=== PATIENT | female | born 1990 | race Caucasian/White ===

== ENCOUNTER → 2018-06-20 | Outpatient (CLI) | payer MEDICAID ==
[~2018-06-20] MED LIST: PREN-127 PO
[2018-06-20 11:08] LABS: PLATELET COUNT, AUTOMATED 249 K/uL (150-450)
== END ==
LOC: LAB 10:13
PROVIDERS: ATTEND Obstetrics & Gynecology
DX: O09.299 Supervision of pregnancy with other poor reproductive or obstetric history, unspecified trimester (principal)
CPT/HCPCS: 36415; 81001; 84702; 85025; 86592; 86703; 86762; 86850; 86900; 86901; 87088; 87340

== ENCOUNTER → 2018-07-01 | Outpatient (CLI) | payer MEDICAID | LOC: LAB 09:59 | PROVIDERS: ATTEND Obstetrics & Gynecology | DX: O20.0 Threatened abortion (principal) | CPT/HCPCS: 36415; 84702 ==

== ENCOUNTER → 2018-08-08 | Outpatient (CLI) | payer MEDICAID ==
[2018-08-08 11:10] LABS: PLATELET COUNT, AUTOMATED 287 K/uL (150-450)
== END ==
LOC: LAB 09:22
PROVIDERS: ATTEND Obstetrics & Gynecology
DX: Z34.81 Encounter for supervision of other normal pregnancy, first trimester (principal)
CPT/HCPCS: 36415; 81001; 84702; 85025; 86592; 86703; 86762; 86850; 86900; 86901; 87088; 87340

== ENCOUNTER → 2018-08-10 | Outpatient (CLI) | payer MEDICAID | LOC: LAB 10:37 | PROVIDERS: ATTEND Obstetrics & Gynecology | DX: O20.0 Threatened abortion (principal) | CPT/HCPCS: 36415; 84702 ==

== ENCOUNTER → 2018-08-17 | Outpatient (CLI) | payer MEDICAID | LOC: LAB 10:44 | PROVIDERS: ATTEND Obstetrics & Gynecology | DX: O03.9 Complete or unspecified spontaneous abortion without complication (principal) | CPT/HCPCS: 36415; 84702 ==

== ENCOUNTER → 2018-12-02 | Outpatient (CLI) | payer MEDICAID ==
[2018-12-02 11:02] LABS: PLATELET COUNT, AUTOMATED 246 K/uL (150-450)
== END ==
LOC: LAB 08:27
PROVIDERS: ATTEND Obstetrics & Gynecology
DX: Z34.91 Encounter for supervision of normal pregnancy, unspecified, first trimester (principal)
CPT/HCPCS: 36415; 81001; 85025; 86592; 86703; 86762; 86850; 86900; 86901; 87088; 87340

== ENCOUNTER → 2018-12-07 | Outpatient (CLI) | payer MEDICAID ==
[~2018-12-07] MED LIST changes: +FLU60SYR36 IM
== END ==
LOC: LAB 08:10
PROVIDERS: ATTEND Student in an Organized Health Care Education/Training Program
DX: Z34.91 Encounter for supervision of normal pregnancy, unspecified, first trimester (principal)
CPT/HCPCS: 87491; 87591

== ENCOUNTER → 2019-02-01 | Outpatient (CLI) | payer MEDICAID ==
--- NOTE | 2019-02-01 11:21 | RADIOLOGY IMAGING REPORT ---
FACILITY: [facility] PATIENT NAME: Kate Valencia : 1990 MR: [id number] V: [id number] EXAM DATE: [id number] ORDERING PHYSICIAN: WAGNER WOODS TECHNOLOGIST: Location: [facility] [place] Patient: Kate Valencia : 1990 Visit/Account:[id number] Date of Sevice: 02/01/2019 EXAMINATION: Ultrasound transabdominal OB > 14 weeks with anatomic evaluation HISTORY: 20 week anatomical survey COMPARISON: None. TECHNIQUE: Transabdominal imaging was performed for assessment of the fetus and maternal pelvic structures. T ransvaginal imaging was not performed. FINDINGS: Placenta: Anterior without previa. Uterus: Gravid, otherwise normal Cervix: Long and closed. Maternal Ovaries: Not visualized. Maternal and other adnexa findings: Not visualized Intrauterine gestations: One. presentation: Cephalic heart rate: Normal and regular at 139 bpm Amniotic fluid index: 13.52 cm Largest amniotic fluid pocket: 4.46 cm Gestational Parameters: BPD: 4.81 cm 20 weeks/ four days, 42% HC: 17.84 cm 20 weeks/ three days, 23% AC: 14.73 cm 20 weeks/ one days, 22% FL: 3.71 cm 21 weeks/ six days, 78% Average ultrasound age (AUA): 20 weeks/six days, VU 06/15/2019 Estimated gestational age by VU: 20 weeks/five days, VU 06/16/2019 Estimated weight (EFW): 377 grams +/- 55 grams EFW for VU: 49 percentile Anatomic Survey: Intracranial structures, 4-chamber heart, stomach, kidneys, urinary bladder, spine, 3-vessel cord and cord insertion are unremarkable. Two upper and two lower extremities visualized. Cardiac ventricula r outflow tracts, palate and lips are unremarkable in appearance. IMPRESSION: Single viable fetus in cephalic presentation with an estimated gestational age by measur ements of 20 weeks and six days. The estimated weight by LMP is 20 weeks and five days. Estim ated weight is 377 g consistent with the 49th percentile Report Dictated By: Dee Conrad MD at 02/01/2019 11:13 AM Report E-Signed By: Dee Conrad MD at 02/01/2019 11:17 AM WSN:[id number]
== END ==
LOC: RAD 08:04
PROVIDERS: ATTEND Student in an Organized Health Care Education/Training Program
DX: Z3A.15 15 weeks gestation of pregnancy (principal)

== ENCOUNTER → 2019-04-11 | Outpatient (CLI) | payer MEDICAID ==
[~2019-04-11] MED LIST changes: +DIPH0.5S2 IM
[2019-04-11 11:28] LABS: PLATELET COUNT, AUTOMATED 236 K/uL (150-450)
== END ==
LOC: LAB 09:42
PROVIDERS: ATTEND Advanced Practice Midwife
DX: Z34.92 Encounter for supervision of normal pregnancy, unspecified, second trimester (principal)
CPT/HCPCS: 36415; 82950; 85025

== ENCOUNTER → 2019-05-18 | Outpatient (CLI) | payer MEDICAID ==
--- NOTE | 2019-05-18 16:47 | RADIOLOGY IMAGING REPORT ---
[place] [facility] [place] NAME: Kate Valencia : 1990 MR: [id number]: [id number] EXAM DATE: ORDERING PHYSICIAN: KELTON MATTA TECHNOLOGIST: Location: [facility] Patient: Kate Valencia : 1990 Visit/Account:[id number] Date of Sevice: 05/18/2019 [facility] [place] OB LIIMITED Indication: 29-year-old female with LMP September 09, 2018. Procedure: There has been satisfactory transabdominal grayscale evaluation of the intrauterine conten ts. Comparison study: February 01, 2019. First ultrasound suggesting gestational age of 20 weeks and 6 days . Findings: Biometric profile: BPD is 8.9 cm which is 36 weeks 0 days HC is 32.1 cm which is 36 weeks 2 days AC is 31.9 cm which is 35 weeks 6 days FL is 7.0 cm which is 36 weeks 0 days The composite gestational age is 36 weeks 1 day. The JIN is 12.1. The largest pocket is 4.0. The vinny mated weight is 2792 +/- 408 gms. weight percentage: 51%. EDC: June 15, 2019. survey: A survey was not performed. Placenta: The placenta is anterior and there is no placenta previa. Maternal adnexa: Unremarkable.. IMPRESSION: There has been satisfactory interval growth for this single live intrauterine w ith a ultrasound gestational age of 36 weeks and 1 day. The estimated date of delivery is June 15, 2019. The weight is 2792 g. This is in the 51st percentile. The heart rate is 146 bpm . The JIN is 12.1. Report Dictated By: Barrera Anguiano MD at 05/18/2019 4:33 PM Report E-Signed By: Barrera Anguiano MD at 05/18/2019 4:39 PM WSN:DAT
== END ==
LOC: US 10:57
PROVIDERS: ATTEND Student in an Organized Health Care Education/Training Program
DX: O26.849 Uterine size-date discrepancy, unspecified trimester (principal)

== ENCOUNTER → 2019-05-24 | Outpatient (CLI) | payer MEDICAID | LOC: LAB 15:33 | PROVIDERS: ATTEND Obstetrics & Gynecology | DX: Z36.85 Encounter for antenatal screening for Streptococcus B (principal); B95.1 Streptococcus, group B, as the cause of diseases classified elsewhere | CPT/HCPCS: 87077; 87081; 87186 ==

== ENCOUNTER 2019-06-03 11:26 | Inpatient (IN) | payer MEDICAID ==
[~2019-06-03] VITALS: Ht 165.1 cm; Wt 74.8 kg
[2019-06-03] MEDS ORDERED: OXYTOCIN 30 UNIT/NS 500 ML 500 ML IV PRN ×2 (11:33→13:45)
[2019-06-03] MEDS ORDERED: FAMOTIDINE(*) 20MG/50ML PREMIX 50 ML IVPB PRN (11:33)
[2019-06-03] MEDS ORDERED: LIDOCAINE/SOD BICARB 8.4% SYR SC PRN (11:35)
[2019-06-03] MEDS ORDERED: FLUSH 10 ML SYR IVP PRN (11:35)
[2019-06-03] MEDS ORDERED: fentaNYL CITR 100 MCG/2 ML AMP IVP PRN (11:35)
[2019-06-03] MEDS ORDERED: LIDOCAINE 1% LOCAL 300 MG/30ML INJ PRN (11:35)
[2019-06-03] MEDS ORDERED: METOCLOPRAMIDE 10 MG/2 ML SDV IVP PRN (11:35)
[2019-06-03] MEDS ORDERED: PENICILLIN G 5 MILLUN VIAL 5 MIU in NS(*) 0.9% 100 ML MINI-BAG 100 ML IVPB ONE (11:35)
[2019-06-03 12:37] VITALS: Ht 165.1 cm; Wt 74.8 kg
[2019-06-03] MEDS: LR(*) 1000 ML BAG 1,000 ML IV SCH ×2 (13:06→16:20)
[2019-06-03 13:25] LABS: PLATELET COUNT, AUTOMATED 263 K/uL (150-450)
[2019-06-03] MEDS ORDERED: BUPIVACAINE 0.25% MPF INJ EPI PRN (13:40)
[2019-06-03] MEDS ORDERED: LIDO/EPI 2% MPF 1:200,000 20ML EPI PRN (13:40)
[2019-06-03] MEDS ORDERED: LIDOCAINE/PF 2% 200MG/10ML AMP 200 MG/10 ML AMPUL EPI PRN (13:40)
[2019-06-03] MEDS ORDERED: fentaNYL CITR 100 MCG/2 ML AMP IT PRN (13:40)
[2019-06-03] MEDS ORDERED: BUPIVACAINE 0.5% INJ 30ML VIAL EPI PRN (13:40)
[2019-06-03] MEDS ORDERED: FENTANYL/ROPIVACAINE 100 ML BAG EPI PRN (13:40)
[2019-06-03] MEDS ORDERED: FENTANYL/ROPIVACAINE 100ML BAG 100 ML ONE (15:35)
--- NOTE | 2019-06-03 16:59 | Anesthesia OB Pre-Anes Eval ---
History of Present Illness Anesthesia Start Date: Jun 03, 2019 Anesthesia Start Time: 15:36 OB Anesthesia Diagnosis: spontaneous labor EDC: Jun 16, 2019 : 7 Para: 3 Vital Signs: BP 105/64, HR 88 O2 sat 96% See RN Notes Pain Ratin Heart Tones: Stable/normal Result Diagram: 06/03/19 1223 Height (Inches): 65.00 Weight (Pounds): 165 Past Medical History Medical History: no pertinent history Surgical History: noncontributory (Lasik) Previous Anesthesia: epidural Hx Anesthesia Reactions: No Hx Family Anesthesia Reaction: No Home Meds Reported Medications Vits W-Ca,Fe,Fa(<1MG) ( VITAMINS) 1 Each Tablet, 1 EACH PO DAILY, TAB 06/20/18 Allergies: Coded Allergies: No Known Drug Allergies (Unverified , 06/20/18) Anesthesia OB ROS Pulmonary: other (clear to auscultation bilaterally, no SOB) Airway Class: ll Cardiovascular ROS: other (RRR, no MRG, no edema, no syncope, no CP) GI ROS: clear liquids ASA Classification: 2 Assessment and Plan Anesthesia Plan: CINDY NEWSOME [employer] ARCHITECT Jun 03, 2019 16:59
[2019-06-03] MEDS ORDERED: PENICILLIN G 2.5 MILLUN/100 ML 100 ML IVPB SCH (17:00)
--- NOTE | 2019-06-03 17:14 | Procedure Note ---
Anesthetic Placement Note Anesthesia Plan: LEB Permit for Anesthesia Signed: Yes Anesthesia Technique: Patient Sitting Anesthesia Prep: Chlorhexidine (used both Chlorhexidine and betadine because chlorhexidine is clear (no dye)) Interspace: L 3-4 Local Anesthetic: 1% Lidocaine, 25 Gauge Needle Amount Local - cc's: 2 Anesthesia Needle: 17g Touhy/Schliff Anesthesia Attempts: 1 Loss of Resistance: Normal Saline Depth of CARLTON (cm): 6.5 Cerebral Spinal Fluid: No Catheter Insertion (cm): 5 Catheter Type: López - Spring Wound (secured 11 cm at skin) Epidural Dressing: Tegaderm, Other (Benzoin, tegaderm, and mefix tape) Anesthesia Tray: Lot Number ([id number]), Expiration Date (04/23/2020), Reference Number ([id number]) Comment: Tolerated very well. Good cooperation from patient. Anesthesia Medications: Epidural Test Dose: 1.5 Lido/Epi (1:200,000), Dose - mL (3), Time (1559), Negative Epidural Loading Dose: 0.2% Ropivicaine, With Fentanyl 2mcg/ml, Dose - ml (6), Time (1608) Epidural Infusion: 0.2% Ropivicaine, With Fentanyl 2mcg/ml, Start Time: (1609) Epidural Pump Setting: Bolus Dose - mL (6), Lockout - Minutes (15), Maintenance Rate - mL/hr (5), Maximum per Hour - mL (17) Complications: None Comment: foot numbness noted after loading dose CINDY RODRIGUEZ CRNA Jun 03, 2019 17:14
--- NOTE | 2019-06-03 17:16 | History & Physical ---
History of Present Illness Age of Patient: 29 : 7 Para or TPAL: 3033 EDC per U/S: Jun 16, 2019 Estimated Gestational Age: 38 Chief Complaint Contractions History of Present Illness PT states contractions started early this AM and have grown stronger. She has good FM, no LOF or VB. Her last SVE in office was 5 cm on Wednesday. History Patient's Blood Type: B Positive Rubella Status: Immune Group B Strep Screen: Positive Obstetrical History: 3 prior , 3 SABs, current healthy with no problems. Allergies: Coded Allergies: No Known Drug Allergies (Unverified , 06/20/18) Family History: FH: hypertension FATHER Med Rec Home Meds Reported Medications Vits W-Ca,Fe,Fa(<1MG) ( VITAMINS) 1 Each Tablet, 1 EACH PO DAILY, TAB 06/20/18 Review of Systems All Systems Reviewed/Normal: Yes, Except as Noted Exam General Exam General Apperance: Alert/Awake/No Acute Distress Neuro: No Gross deficits Cardiovascular: Regular Rate and Rhythm Respiratory: No Respiratory Distress, Clear to Auscultation Abdomen: Soft, Non-Tender, Non-Distended, Gravid - Non-Tender Integumentary: Skin Intact without Lesions or Rash Psychological: Alert & Oriented X3, Appropriate Mood & Affect Cervical Dialation: 5 Cervical Effacement (%): 50 Cervical Consistency: Soft Cervical Position: Anterior Station: -2 Presentation: Vertex Uterine Contractions(Q min): 5 Uterine Contraction Strength: Moderate UC Resting Tone: Soft Fetus Feeling Movement?: Yes Heart Tones: 145 Heart Tone Variabilty: Moderate FHT Accelerations: Present FHT Decelerations: None FHT Category: I Medical Decision Making Data Points Result Diagram: 06/03/19 1223 Pre-Admit Course Medical Record Review: Yes Assessment and Plan MANAGER STATISTICAL Assessment: Stable MANAGER STATISTICAL Plan: Routine Labor Care (AROM performed at 1710, pt now /) Problems: (1) Uterine contractions during Status: Acute Assessment & Plan: Contractions irregular but due to advanced cervical dilation and grand parity decision made to augment labor with pitocin and AROM. Pt also GBS positive and this allows us to get appropriate prophylaxis. PCN two doses received prior to AROM at 1710. Continue present care. KELTON MATTA DO Jun 03, 2019 17:16
--- NOTE | 2019-06-03 18:39 | OB Delivery Note ---
Delivery Note Vaginal Delivery Type: Spont. Vaginal Delivery Delivery Date: Jun 03, 2019 Delivery Time: 18:14 Estimated Gestational Age(wks): 38 Delivery Anesthesia: Epidural Sex: Male Infant Weight (gms): 6.5 Apgars: 1 Minute (7), 5 Minute (9) Repair Needed: Laceration (second degree perineal midline), Vaginal, Perineal Notes: Pt pushed to deliver a viable male over a second degree midline vaginal laceration. Double and tight nuchal cord was reduced after delivery without complication. Infant vigorous at . Nose and mouth were bulb suctioned and infant placed on mom's chest. 3VC was clamped and cut after 30 second delay. Laceration repaired in usual fashion with 3.0 rapide. Spontaneous delivery of intact placenta. Straight cath used to drain bladder, approximately 350 cc of urine. EBL 250 cc. I performed entire delivery and repair unassisted. Wire Stretcher in Attendence: Yes KELTON MATTA DO Jun 03, 2019 18:39
[2019-06-03] MEDS ORDERED: MAGNESIUM HYDROXIDE* 30ML UDCP PO PRN (18:40)
[2019-06-03] MEDS ORDERED: BENZOCAINE 20% 60 ML BTL TP PRN (18:40)
[2019-06-03] MEDS ORDERED: INFLUENZA VIRUS VAC 0.5ML SYR IM ONLY ONE (18:40)
[2019-06-03] MEDS ORDERED: ACETAMINOPHEN 325 MG TAB PO PRN (18:40)
[2019-06-03] MEDS ORDERED: HYDROCORTISONE 2.5% CR 30GM TB PR PRN (18:40)
[2019-06-03] MEDS ORDERED: LANOLIN OINT 7 GM TUBE TP PRN (18:40)
[2019-06-03] MEDS ORDERED: GLYCERIN/WITCH HAZEL LEAF 1 PK TP PRN (18:40)
--- NOTE | 2019-06-03 18:57 | Anesthesia Progress Note ---
Progress/Maintenance Anesthesia Note Date: Jun 03, 2019 Anesthesia Note Time: 18:50 Pain Intensity: 0 Pump: Off Sensory Level: sensory returned Assessment and Plan Assessment: Epidural analgesia worked very well during labor and deliver per patient report. Infusion stopped at 1814 (delivery time) Anesthesia Stop Day: Jun 03, 2019 Anesthesia Stop Time: 18:14 Epidural Catheter Removal: Removed Catheter Intact, Yes, Removed by: (RN (see RN notes)) Removal Date: Jun 03, 2019 CINDY RODRIGUEZ CRNA Jun 03, 2019 18:57
[2019-06-03] MEDS: IBUPROFEN 800 MG TAB PO SCH (20:05)
[2019-06-03] MEDS: DOCUSATE CALCIUM 240 MG CAP PO SCH (20:05)
[2019-06-03 23:40] VITALS: BP 123/61
[2019-06-04 03:30] VITALS: BP 112/57
[2019-06-04] MEDS: IBUPROFEN 800 MG TAB PO SCH ×3 (05:10→20:59)
[2019-06-04 07:45] VITALS: BP 103/63
[2019-06-04] MEDS ORDERED: DIPHTH/TETANUS/ACEL. PERTUSSIS IM ONLY ONE (09:00)
[2019-06-04] MEDS ORDERED: MEASLES,MUMP,RUBELLA VAC 0.5ML SUBQ ONE (09:00)
[2019-06-04] MEDS: DOCUSATE CALCIUM 240 MG CAP PO SCH ×2 (09:03→20:59)
--- NOTE | 2019-06-04 10:00 | OB/GYN Progress Note ---
OB Subjective Progress Notes GI: POS Flatus; NEG Nausea, NEG Vomiting : Voiding Well, Vaginal Bleeding, Scant Pain: Mild Neurological: No Headache OB Objective Physical Exam Vital Signs Date Time Temp Pulse Resp B/P (MAP) Pulse Ox O2 Delivery O2 Flow Rate FiO2 06/04/19 07:45 98.1 77 18 103/63 (76) Room Air Intake and Output 06/04/19 07:03 Intake Total 3005 ml Output Total 1300 ml Balance 1705 ml Intake Oral 950 ml IV Total 2055 ml Output Urine Total 1300 ml # Voids 3 General Appearance: Alert/Awake/No Acute Distress Neurological: No Gross deficits ENT: Moist Mucous Membranes Respiratory: No Respiratory Distress Abdomen: Fundus Firm Extremities: No Cyanosis,Clubbing or Edema Integumentary: Skin Intact without Lesions or Rash Psychological: Alert & Oriented X3, Appropriate Mood & Affect Result Diagram: 06/04/19 0550 Assessment and Plan Post Day: 1 BOX MAKER Assessment: Stable BOX MAKER Plan: Routine Post- Care, Discharge Home Tomorrow Problems: (1) Uterine contractions during Status: Resolved (2) (spontaneous vaginal delivery) Assessment & Plan: continue routine care, home tomorrow. KELTON MATTA DO Jun 04, 2019 09:59
[2019-06-04 11:06] VITALS: BP 120/74
[2019-06-04 15:55] VITALS: BP 117/61
[2019-06-04 19:37] VITALS: BP 104/67
[2019-06-05] VITALS: BP 102/67
[2019-06-05 04:35] VITALS: BP 111/59
[2019-06-05] MEDS: IBUPROFEN 800 MG TAB PO SCH (04:43)
[2019-06-05] MEDS ORDERED: IBUP800T37 PO (08:37)
--- NOTE | 2019-06-05 08:40 | OB/GYN Discharge Summary ---
Discharge Summary Reason for Hosp/Final Diag: (1) Uterine contractions during Status: Resolved (2) (spontaneous vaginal delivery) Status: Resolved Lates Vital Signs Vital Signs Date Time Temp Pulse Resp B/P (MAP) Pulse Ox O2 Delivery O2 Flow Rate FiO2 06/05/19 04:35 97.6 82 16 111/59 (76) 96 Room Air Weight (Pounds): 165 Result Diagram: 06/04/19 0550 Condition: Improved Discharge: Home, Self [facility] Meds Active Scripts Ibuprofen (IBUPROFEN) 800 Mg Tablet, 800 MG PO 0500,1300,2100 for 30 Days, #90 TAB 1 Refill Prov:KELTON SAWYER DO 06/05/19 Reported Medications Vits W-Ca,Fe,Fa(<1MG) ( VITAMINS) 1 Each Tablet, 1 EACH PO DAILY, TAB 06/20/18 Follow up with: [facility] [phone] (We will call you to schedule an appt, please see Dr. Sawyer in 2 weeks for follow up. ) Discharge Diet: As Tolerates Discharge Activity: As Tolerates, No Heavy Lifting x 6 wks, No Heavy Lifting > 10lb, Pelvic Rest Special Instructions: KELTON SAWYER DO Jun 05, 2019 08:40
[2019-06-05] MEDS: DOCUSATE CALCIUM 240 MG CAP PO SCH (08:59)
[2019-06-05 10:20] VITALS: BP 117/68
== END 2019-06-05 13:05 | disposition home or self-care (01) | DRG 807 ==
LOC: OB 11:26
PROVIDERS: ADMIT Obstetrics & Gynecology; ATTEND Obstetrics & Gynecology
PROC: 10E0XZZ Delivery of Products of Conception, External Approach (ICD-10-PCS; principal; 2019-06-03)
PROC: 0KQM0ZZ Repair Perineum Muscle, Open Approach (ICD-10-PCS; 2019-06-03)
PROC: 10907ZC Drainage of Amniotic Fluid, Therapeutic from Products of Conception, Via Natural or Artificial Opening (ICD-10-PCS; 2019-06-03)
DX: O99.824 Streptococcus B carrier state complicating childbirth (principal); Z37.0 Single live birth; O69.1XX0 Labor and delivery complicated by cord around neck, with compression, not applicable or unspecified; O70.1 Second degree perineal laceration during delivery; Z3A.38 38 weeks gestation of pregnancy
CPT/HCPCS: 36415; 85025; 85027; 86850; 86900; 86901; J2540; J2590; J7120